=== PATIENT | female | born 1940 | race Caucasian/White ===

== ENCOUNTER 2024-04-25 08:56 | Emergency (ER) | payer SELFPAY ==
[2024-04-25 09:07] VITALS: BP 150/87
[2024-04-25 10:08] LABS: % Basophils 0.4 % (0-2); % Eosinophils 0.4 % (0-6); % Immature Granulocytes 0.2 % (0-0.5); % Lymphocytes 22.9 % (20.5-51.1); % Monocytes 7.4 % (1.7-9.3); % Neutrophils 68.7 % (42.2-75.2); Absolute Monocytes 0.6 10^3/uL (0.1-0.6); Absolute Neutrophils 5.9 10^3/uL (1.4-6.5); Hematocrit 39.9 % (37.0-47.0); Hemoglobin 14.3 g/dL (12.0-16.0); Mean Corp Hgb Conc. 35.8 g/dL (33.0-37.0); Mean Corpuscular Hgb 32.7 pg (27.0-31.0); Mean Corpuscular Volume 91.3 fL (81.0-99.0); Mean Platelet Volume 8.7 fL (7.4-10.4); Nucleated Red Blood Cells % 0 %; Platelet Count 277 10^3/uL (130-400); Red Blood Cell Count 4.37 10^6/uL (4.20-5.40); Red Cell Dist. Width 11.9 % (11.5-14.5); White Blood Cell Count 8.5 10^3/uL (4.8-10.8)
[2024-04-25 10:15] LABS: ALT (SGPT) 24 U/L (0-35); AST (SGOT) 28 U/L (14-36); Albumin 4.9 g/dl (3.5-5.0); Alkaline Phosphatase 70 U/L (38-126); Blood Urea Nitrogen 12 mg/dl (7-17); Calcium 10.1 mg/dl (8.4-10.2); Carbon Dioxide 31 mmol/L (22-30); Chloride 89 mmol/L (98-107); Glucose 146 mg/dl (70-99); Potassium 3.6 mmol/L (3.5-5.1); Sodium 130 mmol/L (135-145); Total Bilirubin 0.3 mg/dl (0.2-1.3); Total Protein 7.2 g/dl (6.3-8.2); eGFR > 60.00
--- NOTE | 2024-04-25 10:39 | ED.GENMED ---
History of Present Illness
<Osmar Perez DO, Resident - Last Filed: 04/25/24 10:55>
General
Chief Complaint: Blood Pressure Problem
Source: patient and family
Time Seen by Provider: 04/25/24 10:01
History of Present Illness
History of Present Illness:
83 female past medical history of hypertension, hyperlipidemia, cataracts, not arterial optic neuropathy visiting from [place], presents for elevated blood pressures the past week. Patient reports feeling episodes of lightheadedness which are
random, some occasional nausea and occasional headaches which resolved briefly after onset. Patient reports she is 'a nervous Beti' and reports she does feel feelings of anxiety about her blood pressure and the feelings associated. Patient
reports she has been checking her blood pressure, highest reading was 175/80, yesterday 133/84. Patient takes a statin, MISAEL inhibitor and a water pill which were prescribed by her primary care physician. Patient denies any change in vision, admits
to headache and slight nausea.
Review of Systems
<Osmar Perez DO, Resident - Last Filed: 04/25/24 10:55>
Review of Systems
Constitutional: Reports no symptoms
Respiratory: Reports no symptoms
Cardiac: Reports no symptoms
ABD/GI: Reports nausea (Transient)
: Reports no symptoms
Musculoskeletal: Reports no symptoms
Neurological: Reports headache (Transient) and other (Lightheadedness-random, resolved approximately 1 minute)
Psychiatric: Reports anxiety
Phy Exam
<Osmra Perez DO, Resident - Last Filed: 04/25/24 10:55>
General Physical Exam
General Presentation: well appearing and no apparent distress
General Skin: warm and dry
Cardiovascular Exam
Cardiovascular Exam: regular rate/rhythm, no edema and no murmur
Pulmonary Exam
Pulmonary Exam: lungs clear, no respiratory distress, no crackles and no wheezing
Gastrointestinal Exam
Gastrointestinal Exam: non tender, soft and non distended
Psychiatric Exam
Psychiatric Exam: anxious
Course
<Osmar Perez DO, - Last Filed: 04/25/24 10:55>
Orders/Labs/Results
Orders:
Orders
04/25/24 09:11
Electrocardiogram (*1) Urgent
Reason for Study: Abdominal Pain
EKG- Treatment ONCE
04/25/24 09:23
Complete Blood Count/With Diff Urgent
Comprehensive Metabolic Panel Urgent
Abnormal Lab Results
04/25/24
09:23
MCH 32.7 H pg
(27.0-31.0)
Sodium 130 L mmol/L
(135-145)
Chloride 89 L mmol/L
(98-107)
Carbon Dioxide 31 H mmol/L
(22-30)
Creatinine 0.5 L mg/dL
(0.6-1.0)
Glucose 146 H mg/dl
(70-99)
04/25/24 09:23
04/25/24 09:23
Vital Signs
Initial and Last Documented VS:
Initial Vital Signs
Temp Pulse Resp BP Pulse Ox
36.8 C 94 16 150/87 99
04/25/24 09:07 04/25/24 09:07 04/25/24 09:07 04/25/24 09:07 04/25/24 09:07
Last Documented Vital Signs
Temp Pulse Resp BP Pulse Ox
36.4 C 96 17 146/84 99
04/25/24 10:48 04/25/24 10:48 04/25/24 10:48 04/25/24 10:48 04/25/24 10:48
<Neo Rivas MD - Last Filed: 04/25/24 11:19>
Orders/Labs/Results
Orders:
Orders
04/25/24 09:11
Electrocardiogram (*1) Urgent
Reason for Study: Abdominal Pain
EKG- Treatment ONCE
04/25/24 09:23
Complete Blood Count/With Diff Urgent
Comprehensive Metabolic Panel Urgent
Abnormal Lab Results
04/25/24
09:23
MCH 32.7 H pg
(27.0-31.0)
Sodium 130 L mmol/L
(135-145)
Chloride 89 L mmol/L
(98-107)
Carbon Dioxide 31 H mmol/L
(22-30)
Creatinine 0.5 L mg/dL
(0.6-1.0)
Glucose 146 H mg/dl
(70-99)
04/25/24 09:23
04/25/24 09:23
Vital Signs
Initial and Last Documented VS:
Initial Vital Signs
Temp Pulse Resp BP Pulse Ox
36.8 C 94 16 150/87 99
04/25/24 09:07 04/25/24 09:07 04/25/24 09:07 04/25/24 09:07 04/25/24 09:07
Last Documented Vital Signs
Temp Pulse Resp BP Pulse Ox
36.4 C 96 17 146/84 99
04/25/24 10:48 04/25/24 10:48 04/25/24 10:48 04/25/24 10:48 04/25/24 10:48
<Osmar Perez DO, Resident - Last Filed: 04/25/24 10:55>
MDM/Problems Addressed
Differential Diagnosis Includes:
Asymptomatic hypertension, anxiety, hypertensive urgency
MDM/Problems Addressed:
Pleasant 83-year-old female visiting from [place] presents for elevated blood pressures of the past week
Patient takes a water pill and MISAEL inhibitor prescribed her primary care doctor in [place], reports being compliant with medications
Patient reports she has been having transient episodes of lightheadedness which are not associated with anything, happen at rest and when standing up quickly
Patient also endorses having a transient headache and transient nausea, both of which have resolved
Per patient's own account she is high levels of anxiety, she is 'a nervous Beti' and a 'nervous wreck' patient reports feeling symptoms of anxiety surrounding her blood pressure. 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
the past and is concerned she may be having a repeat episode
No acute changes in vision
Blood pressure in emergency department 150/87
EKG normal sinus rhythm, no ischemia
White blood cell and hemoglobin within normal limits
Chemistry demonstrates sodium 130, patient reports she has not been eating or drinking much. Likely hypovolemic hyponatremia secondary to poor p.o. intake
Physical exam benign, abdomen benign, neurologic exam normal
Likely symptoms are secondary to anxiety surrounding blood pressure, lightheadedness is unexpected for hypertension. Brief episode of headache and nausea which have resolved
Encourage relaxation techniques, encouraged taking blood pressure at night when calm and try to not symptoms/blood pressures
Encourage patient to follow-up with primary care provider. As she is visiting from [place] and planning on vacationing in [place] encouraged her to call inform them of what happened and see if there is any recommendations
Will prescribe patient prescription of Toprol which she will be able to fill any pharmacy as is unlikely her primary care will be able to send her any medications. With the condition that she ask her primary care physician about the medication
before using it
Patient asked if she should return home or she is okay to go to [place] for 2 months, informed patient is likely this is [id number] and she is okay to fly and continue with her plans. Informed patient of red flags and issues where she
should return to the emergency department
<Osmar Perez DO, Resident - Last Filed: 04/25/24 10:55>
*Critical Care Note
Total Time (30-74mins, 75-104mins- exclusive of procedures): Not Applicable
ED Attending Note
<Osmar Perez DO, Resident - Last Filed: 04/25/24 10:55>
-
Portions of this chart may have been created with voice recognition software.� Occasional wrong word or��sound alike� substitutions may have occurred due to the inherent limitations of voice recognition software.
<Neo Rivas MD - Last Filed: 04/25/24 11:19>
ED Attending Note
Patient seen and examined by attending physician: Yes
I performed a history and physical exam of patient and discussed management with resident, I reviewed resident's note and agree with documented findings and plan of care.: Yes
ED Attending Note:
I have seen and evaluated the patient with a [id number] encounter. I have spoken to the resident and involved in the medical history, the physical exam, medical decision making.
Evaluation and management service: agree unless noted differently below.
Results interpretation: agree unless noted differently below.
Focused HPI: 83-year-old female with a history of hypertension hyperlipidemia presents to the ER for evaluation of hypertension. Patient reports that she has been traveling from [place] and over the past week has noted that her blood pressures have
been running high she says the maximum 170 systolic. She says that she has had occasional lightheadedness, occasional headache mild. Denies any chest pains, shortness of breath, weakness or numbness in extremities, change in vision or speech. She
is currently asymptomatic. She was concerned because she is supposed to travel to [place] soon and blood pressures have been high and so she came to the ER to be evaluated. No recent changes to her regimen that she has been on MISAEL inhibitor and
diuretic.
Physical exam: Mildly hypertensive essentially normalized by my assessment 146/84. Rest of vitals normal. She has no cardiac rubs gallops or murmurs. Lungs clear to auscultation bilaterally. No gross neurologic deficits. Good pulses in all
extremities with no edema.
Medical Decision Makin-year-old female presents for evaluation of hypertension. Blood pressures have been running high while she has been traveling. Essentially normal here. Vitals and exam as above. Screening labs and EKG reviewed and no
clinically significant abnormalities. No indication for admission to the hospital [facility] for asymptomatic hypertension that has since resolved. I did have a long discussion with the patient about logistics that she is currently traveling from [place]
where her primary doctor resides. She is set to travel to [place] soon. I advised her that she should monitor her blood pressures over the next few days to week. Advised that we will not make any acute changes but that she should consult with her
primary doctor on the phone about how her blood pressures are and that if they are continue to run high her primary doctor may advise her to increase her dose of her current medication. I also wrote a prescription for metoprolol in case her primary
wishes to add an additional agent. Patient comfortable this plan. We spoke about return precautions all questions answered.
Discharge Plan
Departure
Patient Disposition: Home (Routine Discharge)
Date of Disposition: 04/25/24
Time of Disposition: 10:34
Patient with high blood pressure during this ER visit?: Yes
Discharge Problem:
Hypertension
Instructions: High Blood Pressure (DC)
Prescriptions:
New
metoprolol succinate [Toprol XL] 25 mg tablet extended release 24 hr
12.5 mg PO DAILY Qty: 60 0RF
Referrals:
PRIVATE,PHYSICIAN [Family Provider] -
Activity Restrictions/Additional Instructions:
Call your primary doctor to discuss your blood pressure management; I will write a prescription for a blood pressure medication you can fill here, you can discuss with your primary whether to use this medication or to increase the dose of your
current medication. If your symptoms are worsening return to the nearest ER.
Thank you for visiting the Emergency Department at [facility].
1. Please schedule a follow up appointment as directed. Call first thing tomorrow morning to make an appointment.
2. If indicated, please take your medications as instructed and indicated on discharge paperwork.
3. If any of your symptoms do not improve, or persist, or become more severe within 6-12 hours, please return to the emergency department for further care.
4. Please return to the emergency department if you develop a headache, neck pain/stiffness, fever greater than 100.4F, chest pain, shortness of breath, persistent nausea, vomiting, slurred speech, difficulty walking, numbness/tingling, weakness,
signs of infection or any other symptoms that are worrisome to you.
Please call [phone] if you have any questions.
Interventions
Interventions:
*Risk Screen - Suicide Last Done: 04/25/24 09:07
*General Assessment Last Done: 04/25/24 09:07
*Neglect/Abuse Screening Last Done: 04/25/24 09:07
ED- Fall Risk Assessment Last Done: 04/25/24 10:48
*ED COVID-19 Vaccine History Last Done: 04/25/24 10:48
*Nursing Disposition Last Done: 04/25/24 10:48
ED- Cardiac Assessment Last Done: 04/25/24 10:46
ED- Neurological Assessment Last Done: 04/25/24 10:46
ED- Pulmonary Assessment Last Done: 04/25/24 10:46
Discharge Date and Time
Discharge Date/Time: 04/25/24 10:49
Print Language: UPPER SORBIAN
[2024-04-25 10:48] VITALS: BP 146/84
== END 2024-04-25 10:49 | disposition home or self-care (01) ==
LOC: EMR 08:56
PROVIDERS: Emergency Medicine; EMERGENCY PHYSICIAN Emergency Medicine
DX: I10 Essential (primary) hypertension (principal); E78.5 Hyperlipidemia, unspecified
CPT/HCPCS: 99284; 80053; 85025; 93005